=== PATIENT | male | born 1970 | race Caucasian/White ===

== ENCOUNTER 2023-07-30 09:44 | Emergency (ER) | payer OTHER ==
[~2023-07-30] VITALS: Ht 185.4 cm; Wt 132.9 kg
[2023-07-30 10:15] LABS: BASOPHILS 0.3 % (0-2); EOSINOPHILS 1.5 % (0-6); HEMATOCRIT 46.4 % (35.0-50.0); HEMOGLOBIN 15.9 g/dL (12.0-18.0); LYMPHOCYTES 19.4 % (24-44); MCH 31.6 (27-36); MCHC 34.3 g/dl (30-36); MCV 92.4 fl (81-99); MONOCYTES 9.6 % (0-12); NEUTROPHILS 69.2 % (39-80); PLATELET COUNT 183 K/uL (140-440); RBC 5.02 M/ul (4.3-5.7); RDW 13.6 (10.5-15.0)
[2023-07-30 10:33] LABS: ALBUMIN 3.6 g/dL (3.4-5.0); ALBUMIN/GLOBULIN RATIO 0.95 (1.1-2.4); ANION GAP 13.8 (7-21); BILIRUBIN, TOTAL 0.4 ng/dL (0.2-1.0); BUN/CREATININE RATIO 11.4 (6.0-28.6); CALCIUM 8.4 mg/dL (8.5-10.1); CREATININE, SERUM 1.14 mg/dL (0.70-1.30); POTASSIUM 3.8 mmol/L (3.5-5.1); PROTEIN, TOTAL 7.4 g/dL (6.4-8.2)
[2023-07-30] MEDS ORDERED: BELBUCA600 MCG PO (10:43)
[2023-07-30] MEDS ORDERED: CEPHALEXIN MONOHYDRATE 500 MG CAP PO ONE (10:45)
[2023-07-30] MEDS ORDERED: TRIMETHOPRIM/SULFAMETHOXAZOLE 1 EA TAB PO ONE (10:45)
[2023-07-30] MEDS ORDERED: BACTRIM DS TAB1 EACH PO (10:53)
[2023-07-30] MEDS ORDERED: CEPHALEXIN500 M1 PO (10:53)
[2023-07-30 11:04] VITALS: BP 158/93
== END 2023-07-30 11:04 | disposition home or self-care (01) ==
LOC: ED 09:44
PROVIDERS: Emergency Medicine
DX: L03.116 Cellulitis of left lower limb (principal); Z79.899 Other long term (current) drug therapy
CPT/HCPCS: 36415; 80053; 85025; 93971; 99284-25; A9270